=== PATIENT | male | born 1995 ===

== ENCOUNTER 2021-01-19 00:03 | Emergency (ER) | payer OTHER, SELFPAY ==
[2021-01-19] VITALS (11 sets, daily range): BP systolic 102–130; BP diastolic 55–71; PULSE 91–128; RESP 10–25; TEMP 37.1; O2SAT 94–99; BMI 33.9
--- NOTE | 2021-01-19 00:34 | DI.RAD.S_ITS ---
PROCEDURE: XR CHEST 1V INDICATIONS: chest pain TECHNIQUE: One view of the chest was acquired. COMPARISON: None. FINDINGS: Surgical changes and devices: None. Lungs and pleura: Lungs are clear. No pleural effusions or pneumothorax. Mediastinum: Mediastinal contours appear normal. Heart size is normal. Bones and chest wall: No suspicious bony lesions. Overlying soft tissues appear unremarkable. IMPRESSION: No acute cardiopulmonary abnormality. Dictated by: Lucas Conde M.D. on 01/19/2021 at 1:02 Approved by: Lucas Conde M.D. on 01/19/2021 at 1:02
[2021-01-19 00:47] LABS: Add Manual Diff / Slide Review NO; Basophils Absolute Auto 0 /uL (0-100); Basophils Percent Auto 0.3 % (0-2); Eosinophils Absolute Auto 0 /uL (0-450); Eosinophils Percent Auto 0.6 % (2-4); Hematocrit 41.3 % (41-53); Hemoglobin 13.8 g/dL (13.5-17.5); Lymphocytes Absolute Auto 1200 /uL (1100-4500); Lymphocytes Percent Auto 15.3 % (25-40); Mean Corpuscular HGB Conc 33.5 % (30-36); Mean Corpuscular Hemoglobin 28.3 PG (26-34); Mean Corpuscular Volume 84.4 fL (80-100); Monocytes Absolute Auto 800 /uL (0-900); Monocytes Percent Auto 9.7 % (3-14); Neutrophils Absolute Auto 5700 /uL (1500-7000); Neutrophils Percent Auto 74.1 % (50-75); Platelet Count 218 X10^3/uL (150-400); Red Cell Distribution Width 13.4 % (11.6-14.8); White Blood Cell Count 7.7 X10^3/uL (4.5-11.0)
[2021-01-19 00:54] LABS: Alanine Aminotransferase 38 IU/L (<50); Albumin 4.5 g/dL (3.5-5.0); Albumin Globulin Ratio 1.4 (1.0-2.8); Alkaline Phosphatase 54 U/L (38-126); Aspartate Aminotransferase 35 IU/L (17-59); BUN Creatinine Ratio 18.4 (6-22); Bilirubin Total 0.5 mg/dL (0.2-1.3); Blood Urea Nitrogen 18 mg/dL (9-20); Calcium 9.3 mg/dL (8.4-10.2); Carbon Dioxide 29 mmol/L (22-32); Chloride 103 mmol/L (98-107); Creatine Kinase 122 U/L (55-170); Estimated Glomerular Filt Rate > 60.0 mL/min (>60); Globulin 3.2 g/dL (1.7-4.1); Glucose 135 mg/dL (70-100); HEMOLYSIS < 15 (0-50); Lipase 57 U/L (23-300); Potassium 3.8 mmol/L (3.4-5.1); Sodium 138 mmol/L (137-145); Total Protein 7.7 g/dL (6.3-8.2)
[2021-01-19 01:06] LABS: Troponin I < 0.012 ng/mL (0.01-0.034)
[2021-01-19 01:10] LABS: CKMB % Relative Index 0.3 % (1.5-5.0); Creatine Kinase MB 0.38 ng/mL (<2.37)
--- NOTE | 2021-01-19 02:25 | ED.CHESTPAIN ---
HPI - Chest Pain General Chief Complaint: Chest Pain Stated Complaint: chest pain Time Seen by Provider: 01/19/21 02:25 Source: patient Mode of arrival: Ambulatory Limitations: no limitations History of Present Illness HPI narrative: 25-year-old gentleman no significant medical history who presents 24 hours after his 3rd COVID vaccine was severe central chest pain radiating from his substernal area up into the left shoulder toward his back into his abdomen worse with laying flat worse with deep breathing. All developing within hours of his most recent COVID vaccination. He denies fevers, chills, cough. He has never had similar symptoms. He is not dyspneic or orthopneic. Describes no nausea vomiting diarrhea or abdominal pain. Has not noticed lower extremity swelling. Is not complaining of headaches. Related Data Previous Rx's Medication Instructions Recorded benzonatate 100 mg capsule 100 mg PO BIDP PRN #30 cap 06/08/17 (Tessalon Perles) ondansetron 4 mg disintegrating 4 mg SUBLINGUAL Q6HP PRN #10 odt 06/08/17 tablet (Zofran ODT) Allergies Allergy/AdvReac Type Severity Reaction Status Date / Time No Known Allergies Allergy Uncoded 06/17/17 12:22 Review of Systems Review of Systems Narrative: Remainder of complete review of systems is otherwise unremarkable except for that included in the HPI. Patient History Social History Smoking Status: Never smoker Smoking Status: Never smoker Substance Use Type: does not use Exam Narrative Exam Narrative: General: Healthy appearing, in no acute distress. Able to give a complete and coherent history. Well-nourished well-developed HEENT: Moist mucous membranes, normal sclera with reactive pupils, Neck: No JVD, supple Respiratory: Lungs are clear to auscultation, no wheezing no rales no rhonchi. Full and symmetrical air movement but notes pain with and of deep inhalation. Chest: There is no costochondral tenderness no rashes over the chest anterior posterior Cardiac: Regular rate and rhythm no murmurs no bruits Abdomen: Soft, nontender, good bowel tones, no flank pain Skin: Warm and dry, no rashes Neurologic: Grossly neurologically intact with no obvious asymmetries or abnormalities Extremities: No trauma, well perfused Psych: Cooperative, appropriate insight and affect Initial Vital Signs Initial Vital Signs: Vital Signs Temperature 98.7 F 01/19/21 00:10 Pulse Rate 128 H 01/19/21 00:10 Respiratory Rate 16 01/19/21 00:10 Blood Pressure 130/68 01/19/21 00:10 Pulse Oximetry 99 01/19/21 00:10 Course Orders Ordered: ED Orders 01/19/21 EKG-12 Lead Stat 01/19/21 00:30 Complete Blood Count AUTO DIFF Stat Comprehensive Metabolic Panel Stat D Dimer Stat Lipase Stat Troponin & CK Cardiac Panel Stat 01/19/21 00:34 XR chest 1V Stat 01/19/21 02:46 Troponin I Stat 01/19/21 03:41 CT angio chest PE protocol Stat Discontinued Medications Ketorolac Tromethamine (Ketorolac 30 Mg/Ml Vial) 15 mg IV NOW ONE Stop: 01/19/21 02:32 Last Admin: 01/19/21 02:45 Dose: 15 mg Documented by: JHOAN Vital Signs Vital signs: Vital Signs - 8 hr 01/19/21 00:10 01/19/21 01:44 Temperature 98.7 F Pulse Rate 128 H 121 H Respiratory Rate 16 22 Blood Pressure 130/68 119/69 Pulse Oximetry 99 97 MDM - Chest Pain Lab Data Result diagrams: 01/19/21 00:30 01/19/21 00:30 Labs: Lab Results 01/19/21 01/19/21 01/19/21 Range/Units 00:30 00:30 00:30 WBC 7.7 (4.5-11.0) X10^3/uL RBC 4.90 (4.5-5.9) X10^6/uL Hgb 13.8 (13.5-17.5) g/dL Hct 41.3 (41-53) % MCV 84.4 (80-100) fL MCH 28.3 (26-34) PG MCHC 33.5 (30-36) % RDW 13.4 (11.6-14.8) % Plt Count 218 (150-400) X10^3/uL Neut % (Auto) 74.1 (50-75) % Lymph % (Auto) 15.3 L (25-40) % Tompkins % (Auto) 9.7 (3-14) % Eos % (Auto) 0.6 L (2-4) % Baso % (Auto) 0.3 (0-2) % Neut # (Auto) 5700 (7456-3410) /uL Lymph # (Auto) 1200 (2409-0715) /uL Tompkins # (Auto) 800 (0-900) /uL Eos # (Auto) 0 (0-450) /uL Baso # (Auto) 0 (0-100) /uL D-Dimer 310 H (<230) ng/mL Sodium 138 (137-145) mmol/L Potassium 3.8 (3.4-5.1) mmol/L Chloride 103 (98-107) mmol/L Carbon Dioxide 29 (22-32) mmol/L BUN 18 (9-20) mg/dL Creatinine 0.98 (0.66-1.25) mg/dL Estimated GFR > 60.0 (>60) mL/min BUN/Creatinine Ratio 18.4 (6-22) Glucose 135 H (70-100) mg/dL Calcium 9.3 (8.4-10.2) mg/dL Total Bilirubin 0.5 (0.2-1.3) mg/dL AST 35 (17-59) IU/L ALT 38 (<50) IU/L Alkaline Phosphatase 54 (38-126) U/L Total Creatine Kinase 122 (55-170) U/L CK-MB (CK-2) 0.38 (<2.37) ng/mL CK-MB (CK-2) Rel Index 0.3 L (1.5-5.0) % Troponin I < 0.012 (0.01-0.034) ng/mL Total Protein 7.7 (6.3-8.2) g/dL Albumin 4.5 (3.5-5.0) g/dL Globulin 3.2 (1.7-4.1) g/dL Albumin/Globulin Ratio 1.4 (1.0-2.8) Lipase 57 (23-300) U/L 01/19/21 Range/Units 02:46 WBC (4.5-11.0) X10^3/uL RBC (4.5-5.9) X10^6/uL Hgb (13.5-17.5) g/dL Hct (41-53) % MCV (80-100) fL MCH (26-34) PG MCHC (30-36) % RDW (11.6-14.8) % Plt Count (150-400) X10^3/uL Neut % (Auto) (50-75) % Lymph % (Auto) (25-40) % Tompkins % (Auto) (3-14) % Eos % (Auto) (2-4) % Baso % (Auto) (0-2) % Neut # (Auto) (7906-6138) /uL Lymph # (Auto) (6044-0328) /uL Tompkins # (Auto) (0-900) /uL Eos # (Auto) (0-450) /uL Baso # (Auto) (0-100) /uL D-Dimer (<230) ng/mL Sodium (137-145) mmol/L Potassium (3.4-5.1) mmol/L Chloride (98-107) mmol/L Carbon Dioxide (22-32) mmol/L BUN (9-20) mg/dL Creatinine (0.66-1.25) mg/dL Estimated GFR (>60) mL/min BUN/Creatinine Ratio (6-22) Glucose (70-100) mg/dL Calcium (8.4-10.2) mg/dL Total Bilirubin (0.2-1.3) mg/dL AST (17-59) IU/L ALT (<50) IU/L Alkaline Phosphatase (38-126) U/L Total Creatine Kinase (55-170) U/L CK-MB (CK-2) (<2.37) ng/mL CK-MB (CK-2) Rel Index (1.5-5.0) % Troponin I < 0.012 (0.01-0.034) ng/mL Total Protein (6.3-8.2) g/dL Albumin (3.5-5.0) g/dL Globulin (1.7-4.1) g/dL Albumin/Globulin Ratio (1.0-2.8) Lipase (23-300) U/L Imaging Data Chest x-ray: Radiologist's Impression: FINDINGS:? ? Surgical changes and devices:? None.? ? Lungs and pleura:? Lungs are clear.? No pleural effusions or pneumothorax.? ? Mediastinum:? Mediastinal contours appear normal.? Heart size is normal.? ? Bones and chest wall:? No suspicious bony lesions.? Overlying soft tissues appear unremarkable.? ? IMPRESSION:? No acute cardiopulmonary abnormality. ? ? ? Dictated by: Lucas Conde M.D. on 01/19/2021 at 1:02 ? ? CT scan - chest: Radiologist's Impression: No pulmonary embolism, no airspace consolidation, pleural effusions or pneumothorax. No thoracic aortic aneurysm or dissection. Cameron Shoemaker MD ECG Data Interpretation: Sinus tach at a rate of 127 Normal intervals, normal axis No acute ischemic changes No suggestion of pericarditis MDM Narrative Medical decision making narrative: 25-year-old gentleman who presents with severe central chest pain very pleuritic in nature as well as positional within 24 hours of his 3rd COVID vaccine. Labs are reassuring. Initial and 2 hour repeat troponin are unremarkable. D-dimer is slightly elevated in the CTA is ordered. Chest x-ray is unremarkable. He has responded quite well to IV Toradol. I suspect that this is all inflammatory response related to his recent vaccination. There is no evidence of pulmonary embolism, pericarditis, myocarditis, acute coronary syndrome, pneumonia, aortic dissection, pneumothorax. All of these options are reviewed with him and he is resting much more comfortably at this point. He is safe for home discharge Discharge Plan Departure Patient Disposition: Home Clinical Impression: Chest pain, pleuritic Adverse reaction to drug Qualifiers: Encounter type: initial encounter Qualified Code(s): T50.905A - Adverse effect of unspecified drugs, medicaments and biological substances, initial encounter Instructions: DI for Atypical Chest Pain Activity Restrictions/Additional Instructions: Thank you for coming in today Your chest pain responded nicely to Toradol, a medications similar to ibuprofen. Your lab work was very reassuring. There is no evidence for infection, heart attack, collapsed lung, pericarditis or myocarditis. The CT scan of your chest did not show any evidence for pulmonary embolism. I suspect that your symptoms are due to your 3rd COVID vaccination. This means that your having a very brisk immune response which is fantastic. Using 400 mg of ibuprofen (2 [id number] pills) and 1 Tylenol every 6 hours can be very helpful in controlling pain. I would expect symptoms to resolve within the next 48 hours. If you have new symptoms or feel like you are getting worse, please return to the ER Prescriptions: No Action benzonatate [Tessalon Perles] 100 MG capsule 100 mg PO BIDP PRNQty: 30 RF: 0 ondansetron [Zofran ODT] 4 MG tablet,disintegrating 4 mg Sublingual Q6HP PRNQty: 10 RF: 0
[2021-01-19 02:41] LABS: D Dimer 310 ng/mL (<230)
[2021-01-19] MEDS: KETOROLAC 30 MG/ML VIAL 15 MG IV (02:45)
[2021-01-19 03:26] LABS: Troponin I < 0.012 ng/mL (0.01-0.034)
--- NOTE | 2021-01-19 03:41 | DI.CT.S_ITS ---
PROCEDURE: CT ANGIO CHEST PE PROTOCOL INDICATIONS: acute tachycardia and elevated d dimer TECHNIQUE: After the administration of intravenous contrast, 2 mm thick sections acquired from the pulmonary apices to the posterior costophrenic angles. Maximum intensity projection (MIP) coronal and sagittal reformats were then acquired through the thorax. For radiation dose reduction, the following was used: automated exposure control, adjustment of mA and/or kV according to patient size. COMPARISON: None. FINDINGS: Image quality: Excellent. Pulmonary arteries: Pulmonary arteries are normal in size, and demonstrate no intraluminal filling defects to suggest central pulmonary embolism. Lungs and pleura: Lungs are clear. No pleural effusions or pneumothorax. Central and peripheral airways are patent. Mediastinum: Heart size is normal, without pericardial effusion. No mediastinal or hilar adenopathy. Thoracic aorta is normal in caliber and enhancement. Esophagus is normal in caliber, without hiatal hernia. Bones and chest wall: No suspicious bony lesions. Ribs and thoracic spine appear intact throughout. Thyroid gland unremarkable. No axillary or supraclavicular adenopathy. Abdomen: Visualized upper abdominal solid organs appear normal in the early arterial phase of enhancement. IMPRESSION: Unremarkable CT angiogram of the chest without evidence of pulmonary embolism, aortic dissection or aneurysm. Note: Final report is concordant with preliminary interpretation by [email or web address], [facility] Approved by: Kenji Vivas M.D. on 01/19/2021 at 7:14
== END 2021-01-19 05:32 | disposition home or self-care (01) ==
PROVIDERS: Emergency Provider Emergency Medicine
DX: R07.9 Chest pain, unspecified (principal); T50.B95A Adverse effect of other viral vaccines, initial encounter; R07.81 Pleurodynia
CPT/HCPCS: 36415; 71045; 71275; 80053; 82550; 82553; 83690; 84484; 85025; 85379; 93005; 93010; 96374; 99284; 99285; J1885; Q9967